=== PATIENT | male | born 2000 | race African-American/Black ===

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

== ENCOUNTER 2021-12-14 20:35 | Emergency (ER) | payer OTHER ==
[~2021-12-14] VITALS: Ht 167.6 cm; Wt 73.2 kg
[~2021-12-14 20:35] MED LIST changes: +OMEPRAZOLE20 MG PO
[2021-12-14] MEDS ORDERED: BETAMETHASONE V15 G1 TOP (21:46)
[2021-12-15] MEDS ORDERED: PROTONIX40 MG PO (03:15)
== END 2021-12-15 03:34 | disposition home or self-care (01) ==
LOC: ED 20:35
DX: R10.9 Unspecified abdominal pain (principal); I10 Essential (primary) hypertension; Z79.899 Other long term (current) drug therapy
CPT/HCPCS: 36415; 74177; 80053; 81001; 83690; 85025; 99284-25; Q9967